=== PATIENT | female | born 1975 | race Caucasian/White ===

== ENCOUNTER 2019-04-03 16:21 | Emergency (ER) | payer MEDICARE ==
[~2019-04-03] VITALS: Ht 152.4 cm; Wt 76.0 kg
[~2019-04-03 16:21] MED LIST: BEN25 PO; BUTA1CAP38 PO; ONDA4TAB14 PO
[2019-04-03 16:24] VITALS: BP 134/75; PULSE 78; RESP 16; Ht 152.4 cm; Wt 76.0 kg
[2019-04-03] MEDS ORDERED: KETOROLAC 30 MG INJ IM STA (16:46)
[2019-04-03] MEDS ORDERED: METOCLOPRAMIDE 10 MG INJ IM ONE (17:00)
[2019-04-03] MEDS ORDERED: DIPHENHYDRAMINE 25 MG CAP PO ONE (17:00)
--- NOTE | 2019-04-03 17:19 | ERD ---
ER Documentation Chief Complaint Chief Complaint RAMEY since yesterday related to period, hx of same in the past. no vomiting HPI 43-year-old female with no reported past medical or surgical history presents with complaint of frontal type headache. Headache started around yesterday and has been about the same and not acutely worsening. She has suffered similar type headaches in the past. Also with neck pain. She otherwise denies chest pain, shortness of breath, recent fall injury, dizziness, blurry vision, upper extremity paresthesias or weakness. Patient states she has type Tylenol and Excedrin for headache without any improvement in symptoms. Otherwise without complaint and at time evaluation with normal vital signs. ROS All systems reviewed and are negative except as per history of present illness. Medications Home Meds Active Scripts Ztpmiwauvq-Ewibbapfscfit-Lywuhxxq* (Fioricet*) 50-300-40 Mg Capsule, 1 CAP PO Q4H PRN for HEADACHE for 7 Days, CAP Prov:MANUELA TEE-C 04/03/19 Ondansetron (Ondansetron Odt) 4 Mg Tab.rapdis, 4 MG PO Q6H PRN for NAUSEA AND/OR VOMITING, #10 TAB Prov:MANUELA TEE PA-C 04/03/19 Diphenhydramine Hcl* (Benadryl*) 25 Mg Cap, 25 MG PO Q6, #30 CAP Prov:JESUJIT REYESHO PA-C 04/03/19 Allergies Allergies: Coded Allergies: lactase (Verified Allergy, Unknown, headache, 04/03/19) PMhx/Soc Medical and Surgical Hx: pt denies Medical Hx History of Surgery: Yes (Head sx, Thyroidectomy) Anesthesia Reaction: No Hx Alcohol Use: No Hx Substance Use: No Hx Tobacco Use: No Smoking Status: Never smoker FmHx Family History: No diabetes, No coronary disease, No other Physical Exam Vitals Vital Signs Date Temp Pulse Resp B/P (MAP) Pulse Ox O2 O2 Flow FiO2 Time Delivery Rate 04/03/19 98.1 78 16 134/75 97 16:24 (94) Physical Exam I have reviewed the triage vital signs. Const: Well nourished, well developed, appears stated age Eyes: PERRL, no conjunctival injection HENT: NCAT, Neck supple without meningismus CV: RRR, Warm, well-perfused extremities RESP: CTAB, Unlabored respiratory effort GI: soft, non-tender, non-distended, no masses MSK: No gross deformities appreciated Skin: Warm, dry. No rashes Neuro: grossly non focal Psych: Appropriate mood and affect. Results 24 hrs Laboratory Tests Test 04/03/19 17:05 POC Beta HCG, Qualitative NEGATIVE Current Medications Medications Dose Sig/Uriel Start Time Status Last (Trade) Ordered Route PRN Stop Time Admin Dose Reason Admin Ketorolac 30 mg ONCE STAT 04/03/19 DC 04/03/19 Tromethamine IM 16:46 17:09 (Toradol) 04/03/19 16:48 10 mg ONCE ONCE 04/03/19 DC 04/03/19 Metoclopramid IM 17:00 17:09 e HCl 04/03/19 17:01 (Reglan) 25 mg ONCE ONCE 04/03/19 DC 04/03/19 Diphenhydrami PO 17:00 17:09 ne HCl 04/03/19 17:01 (Benadryl) Procedures/MDM This patient presents with a headache most consistent with primary type nonemergent headache. Differential diagnosis includes migraine versus tension type headache. No headache red flags. Neurologic exam without evidence of meningismus, focal neurologic findings. Presentation not consistent with acute intracranial bleed to include SAH (lack of risk factors, headache history). Presentation not consistent with acute [employer] infection to include meningitis or brain abscess, Temporal arteritis unlikely, as is acute angle closure glaucoma given history and physical findings. Presentation not consistent with other acute, emergent causes of headache at this time. Plan to treat symptomatically with pain medication. No indication for imaging/LP at this time. ED course: Toradol given with improvement in symptoms, Benadryl given, patient to be discharged with headache cocktail, strict return precautions explained in detail DISPOSITION PLAN: We discussed follow up with the patient's primary care doctor within 24 to 48 hours. Patient counseled regarding my diagnostic impression and care plan. Prior to discharge all questions answered. Pt agrees with treatment plan and understands strict return precautions. Precautionary instructions provided including instructions to return to the ER if not improving or for any worsening or changing symptoms or concerns. Disclaimer: Inadvertent spelling and grammatical errors are likely due to EHR/dictation software use and do not reflect on the overall quality of patient care. Also, please note that the electronic time recorded on this note does not necessarily reflect the actual time of the patient encounter. Departure Diagnosis: Primary Impression: Headache Condition: Stable Patient Instructions: Self-Care for Headaches Referrals: DOCTOR,NOT ON STAFF (PCP) Additional Instructions: Call your primary care doctor TOMORROW for an appointment during the next 2-3 days.See the doctor sooner or return here if your condition worsens before your appointment time. MANUELA TEE PA-C Apr 03, 2019 17:19
== END 2019-04-03 17:20 | disposition home or self-care (01) ==
LOC: FTE 16:21
DX: R51 Headache (principal)
CPT/HCPCS: 81025; J1885; J2765; 96372